=== PATIENT | female | born 1995 | race Caucasian/White ===

== ENCOUNTER 2016-11-26 23:21 | Emergency (ER) | payer MEDICAID ==
[2016-11-27 02:51] LABS: CALCIUM 9.3 mg/dL (8.5-10.1); CHLORIDE SERUM 102 mmol/L (98-107); CREATININE SERUM 0.7 mg/dL (0.6-1.0); GFR1 > 60 mL/min; GLUCOSE SERUM 100 mg/dL (74-106); POTASSIUM SERUM 4.1 mmol/L (3.5-5.1); SODIUM SERUM 138 mmol/L (136-145)
[2016-11-27 02:56] LABS: ALBUMIN 3.8 g/dL (3.4-5.0); ALKALINE PHOSPHATASE 85 U/L (46-116); ALT/SGPT 21 U/L (14-59); AST/SGOT 18 U/L (15-37); BILIRUBIN TOTAL 0.22 mg/dL (0.20-1.00); LIPASE 151 IU/L (73-393)
[2016-11-27 02:58] LABS: BASOPHIL % 0.5 % (0-2); PLATELET COUNT 330 x10^3mcL (130-400)
[2016-11-27 03:01] LABS: RED CELL DISTRIBUTION WIDTH 15.5 % (11.5-14.5)
[2016-11-27 03:02] LABS: TOTAL PROTEIN, SERUM 8.8 g/dL (6.4-8.2)
[2016-11-27 05:08] VITALS: BP 120/70
== END 2016-11-27 04:50 | disposition home or self-care (01) ==
LOC: ED 23:21
PROVIDERS: Specialist
DX: R07.89 Other chest pain (principal); E66.9 Obesity, unspecified
CPT/HCPCS: J1885

== ENCOUNTER 2017-02-07 11:42 | Emergency (ER) | payer MEDICAID ==
[2017-02-07 14:55] LABS: UA SPECIFIC GRAVITY >=1.030 (1.005-1.035); microscopic required? YES; urine erythrocyte 1+ (NEGATIVE)
[2017-02-07 19:27] VITALS: BP 121/71
== END 2017-02-07 19:27 | disposition home or self-care (01) ==
LOC: ED 11:42
PROVIDERS: Emergency Medicine
DX: R10.30 Lower abdominal pain, unspecified (principal); R10.2 Pelvic and perineal pain; R30.9 Painful micturition, unspecified; Z90.49 Acquired absence of other specified parts of digestive tract

== ENCOUNTER 2017-02-14 08:08 | Emergency (ER) | payer MEDICAID ==
[~2017-02-14] VITALS: Ht 165.1 cm; Wt 118.1 kg
[2017-02-14 08:20] VITALS: BP 132/79
== END 2017-02-14 09:17 | disposition home or self-care (01) ==
LOC: ED 08:08
DX: N93.9 Abnormal uterine and vaginal bleeding, unspecified (principal)

== ENCOUNTER 2017-02-19 07:59 | Emergency (ER) | payer MEDICAID ==
[~2017-02-19] VITALS: Ht 162.6 cm; Wt 118.5 kg
[2017-02-19 09:22] VITALS: BP 125/80
== END 2017-02-19 09:22 | disposition home or self-care (01) ==
LOC: ED 07:59
DX: O26.851 Spotting complicating pregnancy, first trimester (principal); Z3A.01 Less than 8 weeks gestation of pregnancy
CPT/HCPCS: 36415